=== PATIENT | male | born 1985 | race African-American/Black ===

== ENCOUNTER 2021-05-04 17:18 | Emergency (ER) | payer OTHER ==
[2021-05-04] MEDS ORDERED: Lidocaine 1% w/Epinephrine 1:100K 20 ML VIAL ONE (18:51)
[2021-05-04 19:07] LABS: #Basophils 0.1 10x3/uL (0.0-0.2); #Eosinphils 0.1 10x3/uL (0.0-0.5); #Monocytes 1.4 10x3/uL (0.0-1.1); #Neutrophils 10.4 10x3/uL (1.5-8.4); %Basophils 0.4 % (0.0-2.0); %Eosinophils 0.5 % (0.0-6.0); %Lymphocytes 20.4 % (18.0-47.0); %Monocytes 9.5 % (0.0-10.0); %Neutrophils 68.6 % (40.0-75.0); Hemoglobin 15.9 g/dL (13.5-17.5); Mean Corpuscular HGB CONC 32.5 g/dL (32.0-36.0); Mean Corpuscular Hemoglobin 28.6 pg (27.0-33.0); Mean Corpuscular Volume 88.1 fl (81.2-95.1); Mean Platelet Volume 10.3 fl (7.4-10.4); Platelet Count 290 10x3/uL (150-450); RBC Distribution Width 12.6 % (11.5-14.5); Red Blood Cell (RBC) Count 5.55 10x6/uL (4.32-5.72); White Blood Cell (WBC) Count 15.1 10x3/uL (3.5-10.5)
[2021-05-04] MEDS ORDERED: Ketorolac Tromethamine 30 MG/ML VIAL ONE (19:19)
[2021-05-04 19:21] LABS: CRP (Inflammatory) 2.7 mg/dL (= or < 0.5)
[2021-05-04 19:24] LABS: Body Fluid Source Synovial Fluid; Tube # EDTA
[2021-05-04 19:25] LABS: BF Color Yellow; Clarity Cloudy/Turbid (Clear)
[2021-05-04 20:13] LABS: BF Segmented Neutrophils 79 %; Cell Count Non Hematic 21 %; Eosinophils 0 %; Lymphocytes 0 %
[2021-05-04] MEDS ORDERED: predniSONE 20 MG TAB ONE (20:42)
== END 2021-05-04 21:03 | disposition home or self-care (01) ==
LOC: CSHERS 17:18
DX: M25.461 Effusion, right knee (principal); I10 Essential (primary) hypertension; F17.210 Nicotine dependence, cigarettes, uncomplicated
CPT/HCPCS: 20610; 36415; 82945; 84550; 85025; 85652; 86140; 87070; 87205; 89051; 89060; 96372; J1885; J7512